=== PATIENT | male | born 1950 | race Caucasian/White ===

== ENCOUNTER 2018-07-04 14:57 | Inpatient (IN) | payer OTHER ==
[2018-07-04 15:17] VITALS: BMI 28.3
--- NOTE | 2018-07-04 17:33 | HP ---
CIWA Score Nausea/Vomitin Muscle Tremors: 4-Moderate,w/Arms Extend Anxiety: 2 Agitation: 2 Paroxysmal Sweats: 2 Orientation: 0-Oriented Tacttile Disturbances: 0-None Auditory Disturbances: 0-None Visual Disturbances: 0-None Headache: 0-None Present CIWA-Ar Total Score: 13 - Admission Criteria OASAS Guidelines: Admission for Medically Managed Detox: Requires at least one of the followin. CIWA greater than 12 2. Seizures within the past 24 hours 3. Delirium tremens within the past 24 hours 4. Hallucinations within the past 24 hours 5. Acute intervention needed for co occurring medical disorder 6. Acute intervention needed for co occurring psychiatric disorder 7. Severe withdrawal that cannot be handled at a lower level of care (continued vomiting, continued diarrhea, abnormal vital signs) requiring intravenous medication and/or fluids 8. Patient presents the following: CIWA greater than 12 Admission Criteria Met: Admission criteria met Admission ROS [facility] Chief Complaint: " alcohol detox" Allergies/Adverse Reactions: Allergies Allergy/AdvReac Type Severity Reaction Status Date / Time No Known Allergies Allergy Verified 07/04/18 16:47 History of Present Illness: 67 yo with h/o BPH- on flomax am and finasteride pm. Says with h/o malunion R foot and also pain of R forearm Drinks 2-3 pints of vodka/day. Lives alone. Does not work. Says he wants to stop to live again. Says he stopped drinking for about 1 year and restarted 1 year ago when he stopped going to AA and hanging out with other alcohol users. Says he had seizure when he stopped drinking about a year ago. Also with h/o hallucinations- never diagnosed with DT's OJ- neg, UDS- neg G[employer]/DUR- checked- pt has no controlled meds prescribed - Ebola screening Have you traveled outside of the country in the last 21 days: No Have you had contact with anyone from an Ebola affected area: No Have you been sick,other than usual withdrawal symptoms: No - Review of Systems Constitutional: No Symptoms Reported EENT: reports: No Symptoms Reported Respiratory: reports: No Symptoms reported Cardiac: reports: No Symptoms Reported GI: reports: No Symptoms Reported : reports: No Symptoms Reported, Other (prostate problem and if he does not take meds- has incontinence) Musculoskeletal: reports: Other (says he has R forearm pain after a recent fall and R foot) Integumentary: reports: No Symptoms Reported Neuro: reports: No Symptoms reported Endocrine: reports: No Symptoms Reported Hematology: reports: No Symptoms Reported Psychiatric: reports: No Sypmtoms Reported Patient History - Patient Medical History Hx Anemia: No Hx Asthma: No Hx Chronic Obstructive Pulmonary Disease (COPD): No Hx Cancer: No Hx Cardiac Disorders: No Hx Congestive Heart Failure: No Hx Hypertension: No Hx Hypercholesterolemia: No Hx Pacemaker: No HX Cerebrovascular Accident: No Hx Seizures: Yes (alcohgol related-last episode was in 03/2017) Hx Dementia: No Hx Diabetes: No Hx Gastrointestinal Disorders: Yes (acid reflux) Hx Liver Disease: No Hx Genitourinary Disorders: No Hx Sexually Transmitted Disorders: No Hx Renal Disease (ESRD): No Hx Thyroid Disease: No Hx Human Immunodeficiency Virus (HIV): No Hx Hepatitis C: No Hx Depression: No Hx Suicide Attempt: No Hx Bipolar Disorder: No Hx Schizophrenia: No - Patient Surgical History Past Surgical History: No Hx Neurologic Surgery: Yes Hx Cataract Extraction: No Hx Cardiac Surgery: No Hx Lung Surgery: No Hx Breast Surgery: No Hx Breast Biopsy: No Hx Abdominal Surgery: No Hx Appendectomy: No Hx Cholecystectomy: No Hx Genitourinary Surgery: No Hx Section: No Hx Orthopedic Surgery: No Other Surgical History: tonsilectomy Anesthesia Reaction: No - PPD History Previous Implant?: Yes Documented Results: Positive w/o proof Date: 05/02/14 - Smoking Cessation Smoking history: Current every day smoker Have you smoked in the past 12 months: Yes Aproximately how many cigarettes per day: 5 Cigars Per Day: 0 Hx Chewing Tobacco Use: No Initiated information on smoking cessation: Yes 'Breaking Loose' booklet given: 07/04/18 - Substances Abused Alcohoil-vodka Route: Oral Frequency: Daily Amount used: 2 pts. Age of first use: 13 Date of Last Use: 07/03/18 Family Disease History - Family Disease History Family Disease History: Diabetes: Father (alc dependence ), Other: Grandparent ( alc dependence ) Admission Physical Exam [facility] - Vital Signs Vital Signs: Vital Signs - 24 hr 07/04/18 07/04/18 15:15 15:29 Temperature 98.8 F 98.8 F Pulse Rate 60 60 Respiratory 18 18 Rate Blood Pressure 100/73 100/73 - Physical General Appearance: Yes: Within Normal Limits Cleared for Admission [facility] - Detox or Rehab [facility] Level of Care: Medically Managed Detox Regimen/Protocol: Librium Claeared for Rehab Admission: No [facility] Breath Alcohol Content Breath Alcohol Content: 0 Urine Drug Screen - Results Drug Screen Negative: Yes
[2018-07-04] MEDS ORDERED: IBUPROFEN 400 MG TABLET (FP) PO PRN (17:51)
[2018-07-04] MEDS ORDERED: MAGNESIUM HYDROX 2400MG/30ML ORAL SUSPENSION 30 ML CUP PO PRN (17:51)
[2018-07-04] MEDS ORDERED: P-EPHED 60MG/TRIPROLIDI 2.5MG TABLET PO PRN (17:51)
[2018-07-04] MEDS ORDERED: guaiFENesin/D-METHORPHAN HB 10 ML UNIT-DOSE CUPS PO PRN (17:51)
[2018-07-04] MEDS ORDERED: MENTHOL/PHENOL 1 EACH UD MM PRN (17:51)
[2018-07-04] MEDS ORDERED: LOPERAMIDE HCL 2 MG CAPSULE PO PRN (17:51)
[2018-07-04] MEDS ORDERED: MAG HYDROX/AL HYDROX/SIMETH 30 ML UNIT-DOSE CUP PO PRN (17:51)
[2018-07-04] MEDS ORDERED: MAGNESIUM CITRATE 300 ML BOTTLE PO PRN (17:51)
[2018-07-04] MEDS ORDERED: ACETAMINOPHEN 325 MG TABLET (FP) PO PRN (17:51)
[2018-07-04] MEDS ORDERED: chlordiazePOXIDE HCL 25 MG CAPSULE PO PRN (17:55)
[2018-07-04] MEDS ORDERED: chlordiazePOXIDE HCL 25 MG CAPSULE PO ONE (18:30)
[2018-07-04] MEDS: FINASTERIDE 5 MG TABLET (FP) PO SCH (18:44)
[2018-07-04] MEDS ORDERED: MELATONIN 5 MG TABLETS PO PRN (22:00)
[2018-07-04] MEDS: chlordiazePOXIDE HCL 25 MG CAPSULE PO SCH (22:25)
[2018-07-04] MEDS: THIAMINE HCL 100 MG TABLET (FP) PO SCH (22:25)
[2018-07-05 03:26] LABS: URINE APPEARANCE SLCLOUDY; URINE BILIRUBIN NEGATIVE (<2.0 mg/dL); URINE COLOR YELLOW; URINE GLUCOSE (UA) NEGATIVE (NEGATIVE); URINE KETONE NEGATIVE (NEGATIVE); URINE LEUK ESTERASE NEGATIVE (NEGATIVE); URINE NITRITE NEGATIVE (NEGATIVE); URINE PROTEIN NEGATIVE (NEGATIVE)
[2018-07-05] MEDS: chlordiazePOXIDE HCL 25 MG CAPSULE PO SCH ×4 (06:20→22:05)
--- NOTE | 2018-07-05 09:55 | PN ---
S CIWA - CIWA Score Nausea/Vomitin-No Nausea/No Vomiting Muscle Tremors: 4-Moderate,w/Arms Extend Anxiety: 4-Mod. Anxious/Guarded Agitation: 4-Moderately Restless Paroxysmal Sweats: 3 Orientation: 0-Oriented Tacttile Disturbances: 0-None Auditory Disturbances: 0-None Visual Disturbances: 0-None Headache: 0-None Present CIWA-Ar Total Score: 15 [facility] Progress Note (SOAP) Subjective: sweats shakes interrupted sleep agitation body aches Objective: 07/05/18 09:54 Vital Signs Temperature 97.9 F 07/05/18 09:37 Pulse Rate 68 07/05/18 09:37 Respiratory Rate 17 07/05/18 09:37 Blood Pressure 104/60 07/05/18 09:37 O2 Sat by Pulse Oximetry (%) Laboratory Tests 07/04/18 21:45 Urine Color Yellow Urine Appearance Slcloudy Urine pH 5.0 D Ur Specific [place] 1.023 Urine Protein Negative Urine Glucose (UA) Negative Urine Ketones Negative Urine Blood Negative Urine Nitrite Negative Urine Bilirubin Negative Urine Urobilinogen 2.0 Ur Leukocyte Esterase Negative rest of labs pending aaox3 ambulating no acute distress Assessment: 07/05/18 09:55 withdrawal sx Plan: continue detox increase fluids labs pending
[2018-07-05] MEDS ORDERED: TAMSULOSIN HCL 0.4 MG CAP PO ONE (10:00)
[2018-07-05 10:03] LABS: ALBUMIN 3.5 g/dl (3.4-5.0); ALK PHOS 93 U/L (45-117); ANION GAP 10 MMOL/L (8-16); BLOOD UREA NITROGEN 25 mg/dL (7-18); CALCIUM 8.6 mg/dL (8.5-10.1); CHLORIDE 110 mmol/L (98-107); CO2 26 mmol/L (21-32); CREATININE 0.9 mg/dL (0.55-1.3); GLUCOSE,RANDOM 114 mg/dL (74-106); POTASSIUM 4.3 mmol/L (3.5-5.1); SGOT/AST 14 U/L (15-37); SGPT/ALT 20 U/L (13-61); SODIUM 146 mmol/L (136-145); TOT PROT 6.1 g/dl (6.4-8.2)
[2018-07-05] MEDS: FINASTERIDE 5 MG TABLET (FP) PO SCH (10:12)
[2018-07-05] MEDS: PRENATAL VITAMINS W/ FOLIC ACID TABLET (FP) PO SCH (10:12)
[2018-07-05] MEDS: NICOTINE 7 MG/24 HOURS TOPICAL PATCH TD SCH (10:13)
[2018-07-05 10:50] LABS: HEMATOCRIT 38.9 % (35.4-49); HEMOGLOBIN 13.1 GM/dL (11.7-16.9); MCHC 33.7 g/dl (32.0-35.9); MEAN CELL VOLUME 91.9 fl (80-96); MEAN PLT VOLUME 8.7 fl (7.5-11.1); PLATELET COUNT 239 K/MM3 (134-434); RDW 14.9 % (11.9-15.9); WHITE BLOOD COUNT 7.7 K/mm3 (4.0-10.0)
[2018-07-05 10:56] LABS: RBC 4.23 M/mm3 (4.00-5.60)
--- NOTE | 2018-07-05 16:15 | EKG ---
Test Reason : Blood Pressure : / mmHG Vent. Rate : 057 BPM Atrial Rate : 057 BPM P-R Int : 136 ms QRS Dur : 090 ms QT Int : 384 ms P-R-T Axes : 061 075 063 degrees QTc Int : 373 ms SINUS BRADYCARDIA OTHERWISE NORMAL ECG NO PREVIOUS ECGS AVAILABLE Confirmed by MD Dar, Dionisio ([id number]) on 07/05/2018 4:14:40 PM Referred By: Confirmed By:Dionisio Dodge MD
[2018-07-05] MEDS: THIAMINE HCL 100 MG TABLET (FP) PO SCH (22:04)
[2018-07-06] MEDS: chlordiazePOXIDE HCL 25 MG CAPSULE PO SCH ×3 (05:42→17:41)
[2018-07-06] MEDS: FINASTERIDE 5 MG TABLET (FP) PO SCH (10:43)
[2018-07-06] MEDS: PRENATAL VITAMINS W/ FOLIC ACID TABLET (FP) PO SCH (10:43)
[2018-07-06] MEDS: NICOTINE 7 MG/24 HOURS TOPICAL PATCH TD SCH (10:43)
--- NOTE | 2018-07-06 11:20 | PN ---
[facility] CIWA - CIWA Score Nausea/Vomitin-No Nausea/No Vomiting Muscle Tremors: 3 Anxiety: 3 Agitation: 3 Paroxysmal Sweats: 3 Orientation: 0-Oriented Tacttile Disturbances: 0-None Auditory Disturbances: 0-None Visual Disturbances: 0-None Headache: 0-None Present CIWA-Ar Total Score: 12 S Progress Note (SOAP) Subjective: tired anxiety sweats i need my prostate medication Objective: 07/06/18 11:18 Vital Signs Temperature 98.1 F 07/06/18 10:03 Pulse Rate 67 07/06/18 10:03 Respiratory Rate 16 07/06/18 10:03 Blood Pressure 117/67 07/06/18 10:03 O2 Sat by Pulse Oximetry (%) Laboratory Tests 07/04/18 07/05/18 07/05/18 21:45 07:00 07:00 WBC 7.7 RBC 4.23 Hgb 13.1 Hct 38.9 D MCV 91.9 MCH 31.0 D MCHC 33.7 RDW 14.9 Plt Count 239 D MPV 8.7 Sodium 146 H Potassium 4.3 Chloride 110 H Carbon Dioxide 26 Anion Gap 10 BUN 25 H Creatinine 0.9 Creat Clearance w eGFR > 60 Random Glucose 114 H Calcium 8.6 Total Bilirubin 2.0 H AST 14 L ALT 20 Alkaline Phosphatase 93 Total Protein 6.1 L Albumin 3.5 Urine Color Yellow Urine Appearance Slcloudy Urine pH 5.0 D Ur Specific [place] 1.023 Urine Protein Negative Urine Glucose (UA) Negative Urine Ketones Negative Urine Blood Negative Urine Nitrite Negative Urine Bilirubin Negative Urine Urobilinogen 2.0 Ur Leukocyte Esterase Negative RPR Titer 07/05/18 07:00 WBC RBC Hgb Hct MCV MCH MCHC RDW Plt Count MPV Sodium Potassium Chloride Carbon Dioxide Anion Gap BUN Creatinine Creat Clearance w eGFR Random Glucose Calcium Total Bilirubin AST ALT Alkaline Phosphatase Total Protein Albumin Urine Color Urine Appearance Urine pH Ur Specific [place] Urine Protein Urine Glucose (UA) Urine Ketones Urine Blood Urine Nitrite Urine Bilirubin Urine Urobilinogen Ur Leukocyte Esterase RPR Titer Nonreactive aaox3 ambulating no acute distress Assessment: 07/06/18 11:19 withdrawal sx Plan: continue detox increase fluids flomax and finistraide ordered as per pt request
[2018-07-06] MEDS ORDERED: FINASTERIDE 5 MG TABLET (FP) PO SCH (11:30)
[2018-07-06] MEDS: TAMSULOSIN HCL 0.4 MG CAP PO SCH (12:44)
[2018-07-06] MEDS: THIAMINE HCL 100 MG TABLET (FP) PO SCH (21:57)
[2018-07-06] MEDS: chlordiazePOXIDE 5 MG CAPSULE PO SCH (21:59)
[2018-07-07] MEDS: chlordiazePOXIDE 5 MG CAPSULE PO SCH ×3 (05:52→17:16)
[2018-07-07] MEDS: TAMSULOSIN HCL 0.4 MG CAP PO SCH (09:30)
--- NOTE | 2018-07-07 11:07 | PN ---
[facility] Progress Note (SOAP) Subjective: feeling good little sweats Objective: 07/07/18 11:06 Vital Signs Temperature 97.8 F 07/07/18 09:33 Pulse Rate 60 07/07/18 09:33 Respiratory Rate 16 07/07/18 09:33 Blood Pressure 117/54 L 07/07/18 09:33 O2 Sat by Pulse Oximetry (%) aaox3 ambulating no acute distress Assessment: 07/07/18 11:07 withdrawal sx Plan: continue detox increase fluids
[2018-07-07] MEDS: PRENATAL VITAMINS W/ FOLIC ACID TABLET (FP) PO SCH (11:20)
[2018-07-07] MEDS: NICOTINE 7 MG/24 HOURS TOPICAL PATCH TD SCH (11:25)
[2018-07-07] MEDS: FINASTERIDE 5 MG TABLET (FP) PO SCH (11:27)
[2018-07-07] MEDS ORDERED: FINASTERIDE 5 MG TABLET (FP) PO SCH (20:00)
[2018-07-07] MEDS: THIAMINE HCL 100 MG TABLET (FP) PO SCH (22:51)
[2018-07-07] MEDS: chlordiazePOXIDE HCL 10 MG CAPSULE PO SCH (22:51)
[2018-07-08] MEDS: chlordiazePOXIDE HCL 10 MG CAPSULE PO SCH (05:54)
[2018-07-08 09:37] VITALS: BP 119/53; PULSE 68; TEMP 97.5
--- NOTE | 2018-07-08 09:51 | DS ---
[facility] Detox Discharge Summary Admission Date: 07/04/18 Discharge Date: 07/08/18 - History Present History: Alcohol Dependence - Physical Exam Results Vital Signs: Vital Signs Temperature 97.5 F L 07/08/18 09:36 Pulse Rate 68 07/08/18 09:36 Respiratory Rate 20 07/08/18 09:36 Blood Pressure 119/53 L 07/08/18 09:36 O2 Sat by Pulse Oximetry (%) - Treatment Hospital Course: Detox Protocol Followed, Detoxed Safely, Responded well, Discharged Condition Good, Rehab Referral Accepted - Medication Discharge Medications: Ambulatory Orders Tamsulosin HCl [Flomax -] 0.4 mg PO DAILY #30 cap.er.[id number] 04/22/15 Finasteride [Proscar -] 5 mg PO DAILY 07/04/18 - Diagnosis (1) Alcohol dependence with withdrawal delirium Current Visit: Yes Status: Chronic (2) BPH (benign prostatic hyperplasia) Current Visit: Yes Status: Chronic Qualifiers: Lower urinary tract symptom presence: symptoms present Qualified Code(s): N40.1 - Benign prostatic hyperplasia with lower urinary tract symptoms (3) Nicotine abuse Current Visit: Yes Status: Chronic (4) Seizure disorder Current Visit: No Status: Chronic - AMA Did Patient Leave Against Medical Advice: No (efrain ferrer out patient)
[2018-07-08] MEDS: PRENATAL VITAMINS W/ FOLIC ACID TABLET (FP) PO SCH (10:05)
[2018-07-08] MEDS: TAMSULOSIN HCL 0.4 MG CAP PO SCH (10:06)
== END 2018-07-08 11:55 | disposition home or self-care (01) | DRG 897 ==
LOC: YASAS 14:57 → Y6N 18:05
PROC: HZ2ZZZZ Detoxification Services for Substance Abuse Treatment (ICD-10-PCS; principal; 2018-07-04)
DX: F10.231 Alcohol dependence with withdrawal delirium (principal); B40.0 Acute pulmonary blastomycosis; Z72.0 Tobacco use; G40.909 Epilepsy, unspecified, not intractable, without status epilepticus; K21.9 Gastro-esophageal reflux disease without esophagitis; Z86.69 Personal history of other diseases of the nervous system and sense organs
CPT/HCPCS: 36415; 71046-TC-FY; 80053; 81003; 85027; 86593; 93005; 93010

== ENCOUNTER 2019-01-07 11:25 | Inpatient (IN) | payer OTHER ==
--- NOTE | 2019-01-07 12:32 | HP ---
CIWA Score Nausea/Vomitin Muscle Tremors: 4-Moderate,w/Arms Extend Anxiety: 4-Mod. Anxious/Guarded Agitation: 1-Slight > Activity Paroxysmal Sweats: 1-Minimal Palms Moist Orientation: 1-Uncertain about Date Tacttile Disturbances: 1-Very Mild Itch/Numbness Auditory Disturbances: 2-Mild Harshness/Frighten Visual Disturbances: 1-Very Mild Sensitivity Headache: 2-Mild CIWA-Ar Total Score: 19 - Admission Criteria OASAS Guidelines: Admission for Medically Managed Detox: Requires at least one of the followin. CIWA greater than 12 2. Seizures within the past 24 hours 3. Delirium tremens within the past 24 hours 4. Hallucinations within the past 24 hours 5. Acute intervention needed for co occurring medical disorder 6. Acute intervention needed for co occurring psychiatric disorder 7. Severe withdrawal that cannot be handled at a lower level of care (continued vomiting, continued diarrhea, abnormal vital signs) requiring intravenous medication and/or fluids 8. Patient presents the following: CIWA greater than 12 Admission Criteria Met: Admission criteria met Admission ROS [facility] Chief Complaint: My body screams for alcohol, I buy whatever is in the street, I'm in a cycle and I need to get out of it - when I drink I only drink I no eat or sleep - I cannot resist the alcohol Allergies/Adverse Reactions: Allergies Allergy/AdvReac Type Severity Reaction Status Date / Time No Known Allergies Allergy Verified 07/04/18 16:47 History of Present Illness: 68 yo gentleman here for detox from alcohol, this is one of several admissions for treatment. Longest time sober was 10 years - states he thought he was ok and stopped going to and relapsed. Starts drinking first thing with his morning coffee. Tried acamprosate but it did not work for him and is interested in Health: [place]. History of seizures and black outs. States he has no idea why cocaine and marijuana are in his urine tox - 'maybe I did something while I was drunk'. Exam Limitations: No Limitations - Ebola screening Have you traveled outside of the country in the last 21 days: No (N) Have you had contact with anyone from an Ebola affected area: No Do you have a fever: No - Review of Systems Constitutional: Chills, Loss of Appetite, Malaise, Changes in sleep, Weakness EENT: reports: Blurred Vision Respiratory: reports: No Symptoms reported Cardiac: reports: No Symptoms Reported GI: reports: Nausea, Poor Appetite, Indigestion, Abdominal cramping : reports: Frequency Musculoskeletal: reports: Back Pain, Joint Pain (knees - arthritis) Integumentary: reports: Dryness Neuro: reports: Headache, Tremors Endocrine: reports: No Symptoms Reported Hematology: reports: No Symptoms Reported Psychiatric: reports: Judgement Intact, Mood/Affect Appropiate, Anxious Other Systems: Reviewed and Negative Patient History - Patient Medical History Hx Anemia: No Hx Asthma: No Hx Chronic Obstructive Pulmonary Disease (COPD): No Hx Cancer: No Hx Cardiac Disorders: No Hx Congestive Heart Failure: No Hx Hypertension: No Hx Hypercholesterolemia: No Hx Pacemaker: No HX Cerebrovascular Accident: No Hx Seizures: Yes (alcohol related-last episode was in 06/2018) Hx Dementia: No Hx Diabetes: No Hx Gastrointestinal Disorders: Yes (acid reflux) Hx Liver Disease: Yes Hx Genitourinary Disorders: Yes (BPH) Hx Sexually Transmitted Disorders: No Hx Renal Disease (ESRD): No Hx Thyroid Disease: No Hx Human Immunodeficiency Virus (HIV): No Hx Hepatitis C: No Hx Depression: No Hx Suicide Attempt: No Hx Bipolar Disorder: No Hx Schizophrenia: No Other Medical History: knee OA - Patient Surgical History Past Surgical History: No Hx Neurologic Surgery: Yes Hx Cataract Extraction: No Hx Cardiac Surgery: No Hx Lung Surgery: No Hx Breast Surgery: No Hx Breast Biopsy: No Hx Abdominal Surgery: No Hx Appendectomy: No Hx Cholecystectomy: No Hx Genitourinary Surgery: No Hx Section: No Hx Orthopedic Surgery: No Other Surgical History: tonsilectomy Anesthesia Reaction: No - PPD History Previous Implant?: Yes Documented Results: Positive w/o proof (2014 -PPD+ - no meds) Implanted On Prior R Admission?: No Date: 07/05/18 (CXR) PPD to be Administered?: No - Reproductive History Patient is a Female of Child Bearing Age (11 -55 yrs old): No - Smoking Cessation Smoking history: Current every day smoker Have you smoked in the past 12 months: Yes Aproximately how many cigarettes per day: 10 Cigars Per Day: 0 Hx Chewing Tobacco Use: No Initiated information on smoking cessation: Yes 'Breaking Loose' booklet given: 01/07/19 (give on floor) - Substance & Tx. History Hx Alcohol Use: Yes Hx Substance Use: Yes Substance Use Type: Alcohol, Cocaine, Marijuana Hx Substance Use Treatment: Yes (detox, rehab) - Substances abused Alcohol Substance route: Oral Frequency: Daily Amount used: 1 liter vodka Age of first use: 13 Date of last use: 01/06/19 None Substance route: Oral Frequency: Daily Amount used: 1 liter vodka Age of first use: 13 Date of last use: 01/06/19 Family Disease History - Family Disease History Family Disease History: Diabetes: Father (, alc dependence ), Other: Grandparent (alc dependence ), Father, Mother (,abused pills, liver disease ), Brother (one - healthy), Sister (two - (one is transgender)) Admission Physical Exam [facility] - Vital Signs Vital Signs: Vital Signs - 24 hr 01/07/19 11:51 Temperature 96.9 F L Pulse Rate 58 L Respiratory 19 Rate Blood Pressure 101/58 L - Physical General Appearance: Yes: Nourished, Appropriately Dressed, Moderate Distress, Tremorous, Anxious HEENTM: Yes: EOMI, Hearing grossly Normal, Normal ENT Inspection, Normocephalic , Normal Voice, Hearing Decreased Respiratory: Yes: Normal Breath Sounds, No Respiratory Distress Neck: Yes: No masses,lesions,Nodules, Supple Breast: Yes: Breast Exam Deferred Cardiology: Yes: Regular Rhythm, Regular Rate Abdominal: Yes: Soft Genitourinary: Yes: Frequency, Nocturia Back: Yes: Decreased Range of Motion Musculoskeletal: Yes: full range of Motion, Gait Steady, Joint Stiffness (knees) Extremities: Yes: Normal Inspection, Normal Range of Motion Neurological: Yes: Alert, Normal Mood/Affect, Normal Response Integumentary: Yes: Normal Color, Dry, Warm Lymphatic: Yes: Within Normal Limits - Diagnostic (1) BPH (benign prostatic hyperplasia) Current Visit: Yes Status: Chronic Qualifiers: Lower urinary tract symptom presence: symptoms present (2) Alcohol dependence with uncomplicated withdrawal Current Visit: Yes Status: Chronic (3) Nicotine dependence Current Visit: Yes Status: Chronic Qualifiers: Nicotine product type: cigarettes Substance use status: uncomplicated Qualified Code(s): F17.210 - Nicotine dependence, cigarettes, uncomplicated (4) History of seizure Current Visit: Yes Status: Chronic (5) Osteoarthritis of knees, bilateral Current Visit: Yes Status: Chronic Qualifiers: Osteoarthritis type: primary Qualified Code(s): M17.0 - Bilateral primary osteoarthritis of knee Cleared for Admission [facility] - Detox or Rehab [facility] Level of Care: Medically Managed Detox Regimen/Protocol: Librium Breathalyzer - Breathalyzer Breathalyzer: 0 Urine Drug Screen - Test Device Lot number: [id number] Expiration date: 09/22/20 - Control Is test valid?: Yes - Results Drug screen NEGATIVE: No Urine drug screen results: THC-Marijuana, ALVA-Cocaine, BZO-Benzodiazepines Inpatient Rehab Admission - Rehab Decision to Admit Inpatient rehab admission?: No
[2019-01-07] MEDS ORDERED: MELATONIN 5 MG TABLETS PO PRN (12:38)
[2019-01-07] MEDS ORDERED: MAGNESIUM CITRATE 300 ML BOTTLE PO PRN (12:38)
[2019-01-07] MEDS ORDERED: BISMUTH SUBSALICYLATE 524 MG/30 ML UD PO PRN (12:38)
[2019-01-07] MEDS ORDERED: MENTHOL/PHENOL 1 EACH UD MM PRN (12:38)
[2019-01-07] MEDS ORDERED: MAG HYDROX/AL HYDROX/SIMETH 30 ML UNIT-DOSE CUP PO PRN (12:38)
[2019-01-07] MEDS ORDERED: MAGNESIUM HYDROX 2400MG/30ML ORAL SUSPENSION 30 ML CUP PO PRN (12:38)
[2019-01-07] MEDS ORDERED: chlordiazePOXIDE HCL 25 MG CAPSULE PO ONE (13:15)
[2019-01-07] MEDS: NICOTINE 14 MG/24 HOURS TOPICAL PATCH TD SCH (13:20)
[2019-01-07] MEDS: METHOCARBAMOL 500 MG TABLET PO PRN ×2 (13:22→19:47)
[2019-01-07] MEDS: chlordiazePOXIDE HCL 25 MG CAPSULE PO SCH ×2 (17:47→23:32)
[2019-01-07] MEDS: IBUPROFEN 400 MG TABLET (FP) PO PRN (21:59)
[2019-01-07] MEDS: THIAMINE HCL 100 MG TABLET (FP) PO SCH (21:59)
[2019-01-07] MEDS: TAMSULOSIN HCL 0.4 MG CAP PO SCH (22:25)
[2019-01-07] MEDS: ACETAMINOPHEN 325 MG TABLET (FP) PO PRN (23:32)
[2019-01-08] MEDS: METHOCARBAMOL 500 MG TABLET PO PRN ×4 (01:18→22:01)
[2019-01-08] MEDS: chlordiazePOXIDE HCL 25 MG CAPSULE PO PRN ×2 (03:10→12:47)
[2019-01-08] MEDS: hydrOXYzine PAMOATE 25 MG CAPSULE (FP) PO PRN ×3 (03:10→22:01)
[2019-01-08] MEDS: chlordiazePOXIDE HCL 25 MG CAPSULE PO SCH ×4 (06:18→22:01)
[2019-01-08] MEDS: IBUPROFEN 400 MG TABLET (FP) PO PRN ×2 (09:07→18:43)
[2019-01-08] MEDS ORDERED: PRENATAL VITAMINS W/ FOLIC ACID TABLET (FP) PO SCH (10:00)
[2019-01-08] MEDS: NICOTINE 14 MG/24 HOURS TOPICAL PATCH TD SCH (10:30)
[2019-01-08] MEDS: ACETAMINOPHEN 325 MG TABLET (FP) PO PRN (12:48)
--- NOTE | 2019-01-08 13:14 | PN ---
[facility] CIWA - CIWA Score Nausea/Vomitin-Mild Nausea/No Vomiting Muscle Tremors: 4-Moderate,w/Arms Extend Anxiety: 4-Mod. Anxious/Guarded Agitation: 4-Moderately Restless Paroxysmal Sweats: 3 Orientation: 0-Oriented Tacttile Disturbances: 0-None Auditory Disturbances: 0-None Visual Disturbances: 0-None Headache: 0-None Present CIWA-Ar Total Score: 16 [facility] Progress Note (SOAP) Subjective: Anxious, back pain Objective: 01/08/19 13:10 Last Vital Signs Temp Pulse Resp BP Pulse Ox 97.9 F 55 L 16 123/62 01/08/19 09:47 01/08/19 09:47 01/08/19 09:47 01/08/19 09:47 Admission lab results not available (will reorder admission labs in AM: CBC, CMP , RPR; will order UA) Assessment: 01/08/19 13:14 Withdrawal symptoms Plan: Continue detox Encouraged PO water hydration Admission labs reordered in AM
[2019-01-08 18:03] VITALS: PULSE 60
[2019-01-08] MEDS ORDERED: ACETAMINOPHEN 325 MG TABLET (FP) PO PRN (18:38)
--- NOTE | 2019-01-08 18:48 | PN ---
S Progress Note (SOAP) Subjective: (R) hip muscle pain x 24 hrs. States pain is new, sharp and a "10". Objective: Ambulating in halls and moaning. Gait is steady. (R) leg FROM. Muscles at hip and calf soft, w/o increased erythema, warmth, or tenderness upon palpation. Pedal pulses (+). Negative Andi's. No edema. Vital Signs 01/08/19 01/08/19 14:17 18:02 Temperature 97.9 F 98.1 F Pulse Rate 59 L 60 Respiratory 18 18 Rate Blood Pressure 127/66 136/78 Assessment: Alcohol withdrawal. Hop Muscle pain. Continued ciaran knee pain. Plan: Continue detox. Increase ibuprofen and acetaminophen order. Encourage alternation warm and cool compresses (R) prn.
[2019-01-08 21:55] VITALS: BP 150/50; TEMP 98.8
[2019-01-08] MEDS: THIAMINE HCL 100 MG TABLET (FP) PO SCH (22:01)
[2019-01-08] MEDS: TAMSULOSIN HCL 0.4 MG CAP PO SCH (22:01)
[2019-01-09] MEDS ORDERED: KETOROLAC TROMETHAMINE 30 MG/1 ML VIAL IM PRN (00:42)
[2019-01-09] MEDS: IBUPROFEN 400 MG TABLET (FP) PO PRN (03:39)
--- NOTE | 2019-01-09 04:45 | PN ---
[facility] Progress Note Note: 'S NOTE INFORMED AT ABOUT 4:30AM THAT THE PT. WANTS TO SIGN OUT AMA FOR PERSONAL REASONS INSPITE OF ADVICE NOT TO DO SO AT THIS TIME. SO, THE PT. SIGNED OUT AMA AND ABOUT TO LEAVE THE FACILITY SOON. RECOMMENDED: TO F/U WITH PMD AND OUT PT. PROGRAMS PROVIDER: DELIA LEVI MD
[2019-01-09] MEDS ORDERED: chlordiazePOXIDE HCL 10 MG CAPSULE PO PRN (17:00)
[2019-01-09] MEDS ORDERED: chlordiazePOXIDE HCL 10 MG CAPSULE PO SCH (17:00)
[2019-01-10] MEDS ORDERED: chlordiazePOXIDE HCL 10 MG CAPSULE PO SCH (17:00)
== END 2019-01-09 04:42 | disposition home or self-care (01) | DRG 897 ==
LOC: YASAS 11:25 → Y6N 12:35
PROVIDERS: ADMIT Surgery; ATTEND Surgery
PROC: HZ2ZZZZ Detoxification Services for Substance Abuse Treatment (ICD-10-PCS; principal; 2019-01-07)
DX: F10.230 Alcohol dependence with withdrawal, uncomplicated (principal); F17.213 Nicotine dependence, cigarettes, with withdrawal; K21.9 Gastro-esophageal reflux disease without esophagitis; N40.0 Benign prostatic hyperplasia without lower urinary tract symptoms; M17.0 Bilateral primary osteoarthritis of knee; Z86.19 Personal history of other infectious and parasitic diseases

== ENCOUNTER 2019-08-28 13:09 | Inpatient (IN) | payer OTHER ==
[2019-08-28 14:38] VITALS: BMI 31.3
--- NOTE | 2019-08-28 17:12 | HP ---
"CIWA Score Nausea/Vomitin Muscle Tremors: 7-Severe,w/o Arm Extended Anxiety: 3 Agitation: 3 Paroxysmal Sweats: 3 (Increased facial moisture) Orientation: 0-Oriented Tacttile Disturbances: 0-None Auditory Disturbances: 0-None Visual Disturbances: 0-None Headache: 0-None Present CIWA-Ar Total Score: 19 - Admission Criteria OASAS Guidelines: Admission for Medically Managed Detox: Requires at least one of the followin. CIWA greater than 12 2. Seizures within the past 24 hours 3. Delirium tremens within the past 24 hours 4. Hallucinations within the past 24 hours 5. Acute intervention needed for co occurring medical disorder 6. Acute intervention needed for co occurring psychiatric disorder 7. Severe withdrawal that cannot be handled at a lower level of care (continued vomiting, continued diarrhea, abnormal vital signs) requiring intravenous medication and/or fluids 8. Patient presents the following: CIWA greater than 12 Admission Criteria Met: Admission criteria met Admitting History and Physical - Smoking History Smoking history: Current every day smoker Have you smoked in the past 12 months: Yes Aproximately how many cigarettes per day: 10 - Alcohol/Substance Use Hx Alcohol Use: Yes Admission ROS S - HPI Chief Complaint: Here for alcohol detox. I want to go to rehab this time. Allergies/Adverse Reactions: Allergies Allergy/AdvReac Type Severity Reaction Status Date / Time No Known Allergies Allergy Verified 08/28/19 14:30 History of Present Illness: 69 yo presents w/ alcohol withdrawal seeking detox. Also presents w/ cocaine use disorder. Comes [facility] from [facility] ED w/ Dx alcohol intoxication and auditory hallucinations. Was given Tylenol, Valium, folic acid, IV-nacal; Thiamine in [facility] ed. Blood work done, but no results sent w/ patients discharge papers. Last here in 01/09/2019. States relapsed 3 months ago. Hx seizures r/t alcohol withdrawal. Denies being on seizure medications. Hx Intubation r/t DT's. Alcohol use since age 13: Currently drinks 1 liter vodka per day. Last drank yesterday a.m. Cocaine use since age [age]: Currently 1-2x Q3 months. Nicotine use since age 16: Smokes 1 PPD q2 weeks PMHx: BPH; MHx: Depression. Insomnia. Hallucinations when stops drinking. Denies thoughts of harming self or others. Last saw MH Provider in out-patient program. SHx: Lives alone. Retired. Denies legal issues. Search Terms: Evangelista Feliciano, 1950 Search Date: 08/28/2019 05:09:00 PM The Drug Utilization Report below displays all of the controlled substance prescriptions, if any, that your patient has filled in the last twelve months. The information displayed on this report is compiled from pharmacy submissions to the Department, and accurately reflects the information as submitted by the pharmacies. This report was requested by: Meera Sandy | Reference #: [id number] There are no results for the search terms that you entered. Exam Limitations: No Limitations - Ebola screening Have you traveled outside of the country in the last 21 days: No Have you had contact with anyone from an Ebola affected area: No Have you been sick,other than usual withdrawal symptoms: No Do you have a fever: No - Review of Systems Constitutional: Chills, Diaphoresis, Changes in sleep (Difficulty dfalling asleep - takes trazodone) EENT: reports: Blurred Vision Respiratory: reports: SOB with Exertion Cardiac: reports: No Symptoms Reported GI: reports: Diarrhea (yellowish liquid BM x 4 times), Nausea, Vomiting : reports: Other (Difficuty starting flow and flow is weak) Musculoskeletal: reports: No Symptoms Reported Integumentary: reports: Erythema (Hands always reddish) Neuro: reports: Tremors Endocrine: reports: No Symptoms Reported Hematology: reports: No Symptoms Reported Psychiatric: reports: Judgement Intact, Orientated x3, Anxious, Depressed ( Denies thoughts of harming self or others) Patient History - Patient Medical History Hx Anemia: No Hx Asthma: No Hx Chronic Obstructive Pulmonary Disease (COPD): No Hx Cancer: No Hx Cardiac Disorders: No Hx Congestive Heart Failure: No Hx Hypertension: No Hx Hypercholesterolemia: No Hx Pacemaker: No HX Cerebrovascular Accident: No Hx Seizures: Yes (alcohol related-last episode was in 06/2018) Hx Dementia: No Hx Diabetes: No Hx Gastrointestinal Disorders: Yes (acid reflux) Hx Liver Disease: Yes Hx Genitourinary Disorders: Yes (BPH) Hx Sexually Transmitted Disorders: No Hx Renal Disease (ESRD): No Hx Thyroid Disease: No Hx Human Immunodeficiency Virus (HIV): No Hx Hepatitis C: No Hx Depression: No Hx Suicide Attempt: No Hx Bipolar Disorder: No Hx Schizophrenia: No - Patient Surgical History Past Surgical History: No Hx Neurologic Surgery: Yes Hx Cataract Extraction: No Hx Cardiac Surgery: No Hx Lung Surgery: No Hx Breast Surgery: No Hx Breast Biopsy: No Hx Abdominal Surgery: No Hx Appendectomy: No Hx Cholecystectomy: No Hx Genitourinary Surgery: No Hx Section: No Hx Orthopedic Surgery: No Other Surgical History: tonsilectomy Anesthesia Reaction: No - PPD History Previous Implant?: Yes Documented Results: Positive w/proof Implanted On Prior [facility] Admission?: Yes Date: 07/05/18 PPD to be Administered?: No - Smoking Cessation Smoking history: Current every day smoker Have you smoked in the past 12 months: Yes Aproximately how many cigarettes per day: 2 Cigars Per Day: 0 Hx Chewing Tobacco Use: No Initiated information on smoking cessation: Yes 'Breaking Loose' booklet given: 08/28/19 - Substance & Tx. History Hx Alcohol Use: Yes Hx Substance Use: Yes Substance Use Type: Alcohol, Cocaine Hx Substance Use Treatment: Yes (DETOX, REHAB) - Substances abused Alcohol Substance route: Oral Frequency: Daily Amount used: 2 liter vodka Age of first use: 13 Date of last use: 08/28/19 None Substance route: Oral Frequency: Daily Amount used: 1 liter vodka Age of first use: 13 Date of last use: 01/06/19 Crack Substance route: Smoking Frequency: 1-2 times per week Amount used: $50 Age of first use: 15 Date of last use: 08/27/19 Admission Physical Exam BHS - Vital Signs Vital Signs: Vital Signs - 24 hr 08/28/19 14:23 Temperature 97.5 F L Pulse Rate 71 Respiratory 20 Rate Blood Pressure 106/63 - Physical General Appearance: Yes: Nourished, Moderate Distress, Obese, Tremorous, Sweating (Increased facial moisture), Anxious HEENTM: Yes: EOMI, Hearing grossly Normal, Normocephalic, Normal Voice, CL, Pharynx Normal, Scleral Ictenus R (Faint yellowish color), Scleral Ictenus L ( Faint yellowish color), Nasal Congestion Respiratory: Yes: Lungs Clear (Pulse Ox = 98 %), Normal Breath Sounds, No Respiratory Distress Neck: Yes: No masses,lesions,Nodules, Supple Breast: Yes: Breast Exam Deferred Cardiology: Yes: Regular Rhythm, Regular Rate (HR: 66), S1, S2 Abdominal: Yes: Non Tender, Soft, Increased Bowel Sounds, Protuberent ( Increased abdominal adiposity) Genitourinary: Yes: Dysuria Back: Yes: Normal Inspection Musculoskeletal: Yes: full range of Motion, Gait Steady Extremities: Yes: Normal Capillary Refill, Tremors (Gross tremors at rest) Neurological: Yes: global marketing specialist II-XII NML intact, Fully Oriented, Alert, Motor Strength 5/5, Normal Response Integumentary: Yes: Normal Color, Dry (Dry, falky skin, except for facial area.) , Warm, Moist (Increased facial moisture.) Lymphatic: Yes: Within Normal Limits - Diagnostic (1) Scleral icterus Current Visit: Yes Status: Acute (2) Alcohol dependence with uncomplicated withdrawal Current Visit: Yes Status: Chronic (3) BPH (benign prostatic hyperplasia) Current Visit: Yes Status: Chronic Qualifiers: Lower urinary tract symptom presence: symptoms present (4) History of seizure Current Visit: No Status: Chronic Comment: r/t withdrawal (5) Nicotine dependence Current Visit: Yes Status: Chronic Qualifiers: Nicotine product type: cigarettes Substance use status: uncomplicated Qualified Code(s): F17.210 - Nicotine dependence, cigarettes, uncomplicated (6) Cocaine abuse Current Visit: Yes Status: Chronic Cleared for Admission S - Detox or Rehab [facility] Level of Care: Medically Managed Detox Regimen/Protocol: Librium Claeared for Rehab Admission: No Breathalyzer - Breathalyzer Breathalyzer: 0 Urine Drug Screen - Test Device Lot number: [id number] Expiration date: 05/22/21 - Control Is test valid?: Yes - Results Drug screen NEGATIVE: No Urine drug screen results: ALVA-Cocaine, BZO-Benzodiazepines Inpatient Rehab Admission - Rehab Decision to Admit Inpatient rehab admission?: No"
[2019-08-28] MEDS ORDERED: chlordiazePOXIDE HCL 25 MG CAPSULE PO PRN (17:24)
[2019-08-28] MEDS ORDERED: ACETAMINOPHEN 325 MG TABLET (FP) PO PRN ×2 (17:24)
[2019-08-28] MEDS ORDERED: MAGNESIUM CITRATE 300 ML BOTTLE PO PRN (17:24)
[2019-08-28] MEDS ORDERED: MAGNESIUM HYDROX 2400MG/30ML ORAL SUSPENSION 30 ML CUP PO PRN (17:24)
[2019-08-28] MEDS ORDERED: MAG HYDROX/AL HYDROX/SIMETH 30 ML UNIT-DOSE CUP PO PRN (17:24)
[2019-08-28] MEDS ORDERED: chlordiazePOXIDE HCL 25 MG CAPSULE PO ONE (17:24)
[2019-08-28] MEDS ORDERED: MENTHOL/PHENOL 1 EACH UD MM PRN (17:24)
[2019-08-28] MEDS ORDERED: BISMUTH SUBSALICYLATE 524 MG/30 ML UD PO PRN (17:24)
[2019-08-28] MEDS ORDERED: IBUPROFEN 400 MG TABLET (FP) PO PRN (17:24)
[2019-08-28] MEDS ORDERED: MELATONIN 5 MG TABLETS PO PRN (17:24)
[2019-08-28] MEDS: chlordiazePOXIDE HCL 25 MG CAPSULE PO SCH (23:05)
[2019-08-28] MEDS: THIAMINE HCL 100 MG TABLET (FP) PO SCH (23:05)
[2019-08-28] MEDS: FINASTERIDE 5 MG TABLET (FP) PO SCH (23:47)
[2019-08-29] MEDS: chlordiazePOXIDE HCL 25 MG CAPSULE PO SCH ×5 (06:12→22:03)
--- NOTE | 2019-08-29 08:57 | PN ---
S CIWA - CIWA Score Nausea/Vomitin-Mild Nausea/No Vomiting Muscle Tremors: 3 Anxiety: 2 Agitation: 2 Paroxysmal Sweats: 2 Orientation: 0-Oriented Tacttile Disturbances: 0-None Auditory Disturbances: 0-None Visual Disturbances: 0-None Headache: 1-Very Mild CIWA-Ar Total Score: 11 S Progress Note (SOAP) Subjective: states feeling better with detox protocol O: Vital Signs - 24 hr 08/28/19 08/28/19 08/28/19 14:23 19:11 21:12 Temperature 97.5 F L 97.1 F L 97.5 F L Pulse Rate 71 81 75 Respiratory 20 18 18 Rate Blood Pressure 106/63 112/61 111/60 08/29/19 08/29/19 08/29/19 00:30 03:30 06:19 Temperature 97.5 F L Pulse Rate 57 L Respiratory 18 18 16 Rate Blood Pressure 97/60 labs pending a/p: AUD- admitted yesterday, feeling better today to d/w counselor re prison treatment plans
[2019-08-29] MEDS: PRENATAL VITAMINS W/ FOLIC ACID TABLET (FP) PO SCH (09:26)
[2019-08-29] MEDS: TAMSULOSIN HCL 0.4 MG CAP PO SCH (09:26)
--- NOTE | 2019-08-29 09:26 | EKG ---
Test Reason : Blood Pressure : / mmHG Vent. Rate : 065 BPM Atrial Rate : 065 BPM P-R Int : 156 ms QRS Dur : 096 ms QT Int : 382 ms P-R-T Axes : 052 038 039 degrees QTc Int : 397 ms NORMAL SINUS RHYTHM NORMAL ECG WHEN COMPARED WITH ECG OF 04-JUL-2018 19:23, NO SIGNIFICANT CHANGE WAS FOUND Confirmed by Rolf Anton MD ([id number]) on 08/29/2019 9:26:20 AM Referred By: Confirmed By:Rolf Anton MD
[2019-08-29] MEDS: NICOTINE 7 MG/24 HOURS TOPICAL PATCH TD SCH (10:29)
--- NOTE | 2019-08-29 11:13 | CONSULT ---
[facility] Psychiatric Consult - Data Date of interview: 08/29/19 Admission source: [facility] Identifying data: Mr Feliciano is a 69 years old single male, retired hotel worker receiving social security, living alone seeking detox treatment for alcohol and cocaine Substance Abuse History: Reports history of alcohol and cocaine use. Refer to addiction counselor's summary for further information Medical History: Significant for osteoarthritis of both knees, benign prostatic hyperplasia, PPD+, history of alcohol related seizure and tonsillectomy. Smokes 2 cigarettes daily Psychiatric History: Patient is very irritable and superficially cooperative in providing information. At first, he denies history of previous psychiatric treatment. However, when reminded about psychotropic medications including Zoloft 50 mg/day and Trazadone 100 mg/hs that he is on, he acknowledges taking them for about a month prescribed by a psychiatrist at [facility]. Denies previous psychiatric hospitalization or suicidal attempt. At present, reports feeling irritable and sleeping poorly Physical/Sexual Abuse/Trauma History: Denies history of abuse as a child or DV relationship as an adult Mental Status Exam - Mental Status Exam Alert and Oriented to: Time, Place, Person Cognitive Function: Fair Patient Appearance: Disheveled Mood: Irritable Affect: Appropriate Speech Pattern: Clear Voice Loudness: Normal Thought Process: Intact, Goal Oriented Hallucinations: Denies Suicidal Ideation: Denies Homicidal Ideation: Denies Insight/Judgement: Poor Sleep: Poorly Appetite: Good Muscle strength/Tone: Normal Gait/Station: Normal Psychiatric Findings - Problem List ([place] 1, 2,3) (1) Substance induced mood disorder Current Visit: Yes Status: Acute (2) MDD (major depressive disorder) Current Visit: Yes Status: Ruled-out (3) Substance-induced sleep disorder Current Visit: Yes Status: Acute (4) Alcohol dependence with uncomplicated withdrawal Current Visit: Yes Status: Chronic (5) Cocaine dependence Current Visit: Yes Status: Acute (6) Nicotine dependence Current Visit: Yes Status: Chronic Qualifiers: Nicotine product type: cigarettes Substance use status: uncomplicated Qualified Code(s): F17.210 - Nicotine dependence, cigarettes, uncomplicated (7) History of seizure Current Visit: No Status: Resolved Comment: r/t withdrawal (8) Osteoarthritis of knees, bilateral Current Visit: No Status: Chronic Qualifiers: Osteoarthritis type: primary Qualified Code(s): M17.0 - Bilateral primary osteoarthritis of knee (9) PPD positive Current Visit: Yes Status: Chronic - Initial Treatment Plan Initial Treatment Plan: 1) Continue Zoloft 50 mg po daily and Trazadone 100 mg po HS. 2) Continue inpatient detoxification
[2019-08-29] MEDS: SERTRALINE HCL 50 MG TABLET (FP) PO SCH (12:00)
[2019-08-29] MEDS: traZODone HCL 100 MG TABLET (FP) PO SCH (22:03)
[2019-08-29] MEDS: FINASTERIDE 5 MG TABLET (FP) PO SCH (22:04)
[2019-08-29] MEDS: THIAMINE HCL 100 MG TABLET (FP) PO SCH (22:07)
[2019-08-30] MEDS: chlordiazePOXIDE HCL 25 MG CAPSULE PO SCH ×4 (05:35→21:59)
--- NOTE | 2019-08-30 10:29 | PN ---
S CIWA - CIWA Score Nausea/Vomitin-Mild Nausea/No Vomiting Muscle Tremors: 2 Anxiety: 2 Agitation: 2 Paroxysmal Sweats: No Perspiration Orientation: 0-Oriented Tacttile Disturbances: 1-Very Mild Itch/Numbness Auditory Disturbances: 0-None Visual Disturbances: 0-None Headache: 2-Mild CIWA-Ar Total Score: 10 BHS Progress Note (SOAP) Subjective: alert,irritable,anxious,interrupted sleep,tremor Objective: 08/30/19 10:26 Vital Signs Temperature 97.8 F 08/30/19 09:12 Pulse Rate 73 08/30/19 09:12 Respiratory Rate 18 08/30/19 09:12 Blood Pressure 104/53 L 08/30/19 09:12 O2 Sat by Pulse Oximetry (%) Assessment: 08/30/19 10:28 withdrawal symptom Plan: continue detox librium regimen
[2019-08-30] MEDS: TAMSULOSIN HCL 0.4 MG CAP PO SCH (10:31)
[2019-08-30] MEDS: SERTRALINE HCL 50 MG TABLET (FP) PO SCH (10:31)
[2019-08-30] MEDS: PRENATAL VITAMINS W/ FOLIC ACID TABLET (FP) PO SCH (10:31)
[2019-08-30] MEDS: NICOTINE 7 MG/24 HOURS TOPICAL PATCH TD SCH (10:40)
[2019-08-30] MEDS: traZODone HCL 100 MG TABLET (FP) PO SCH (21:57)
[2019-08-30] MEDS: THIAMINE HCL 100 MG TABLET (FP) PO SCH (21:57)
[2019-08-30] MEDS: FINASTERIDE 5 MG TABLET (FP) PO SCH (21:57)
[2019-08-31] MEDS ORDERED: chlordiazePOXIDE HCL 10 MG CAPSULE PO PRN
[2019-08-31] MEDS: chlordiazePOXIDE HCL 10 MG CAPSULE PO SCH ×4 (05:57→21:59)
--- NOTE | 2019-08-31 09:16 | PN ---
S CIWA - CIWA Score Nausea/Vomitin-No Nausea/No Vomiting Muscle Tremors: 1-None Visible, but Hope Anxiety: 2 Agitation: 3 Paroxysmal Sweats: 1-Minimal Palms Moist Orientation: 0-Oriented Tacttile Disturbances: 1-Very Mild Itch/Numbness Auditory Disturbances: 0-None Visual Disturbances: 0-None Headache: 0-None Present CIWA-Ar Total Score: 8 BHS Progress Note (SOAP) Subjective: Patient is a 69 yo male with w/ hx of alcohol and cocaine dependence currently on librium detox protocol c/o of interrupted sleep, chills and irritability. Objective: 08/31/19 09:17 Vital Signs Temperature 97.2 F L 08/31/19 05:00 Pulse Rate 60 08/31/19 05:00 Respiratory Rate 20 08/31/19 05:00 Blood Pressure 102/60 08/31/19 05:00 O2 Sat by Pulse Oximetry (%) labs pending Assessment: 08/31/19 09:19 Patient Aox3 no acute distress full ROM ambulating in the unit withdrawal sx Plan: increase fluids continue detox continue to monitor
[2019-08-31] MEDS: SERTRALINE HCL 50 MG TABLET (FP) PO SCH (10:30)
[2019-08-31] MEDS: TAMSULOSIN HCL 0.4 MG CAP PO SCH (10:30)
[2019-08-31] MEDS: PRENATAL VITAMINS W/ FOLIC ACID TABLET (FP) PO SCH (10:30)
[2019-08-31 13:15] LABS: PH,URINE 5.5 (5.0-8.0); URINE APPEARANCE CLEAR; URINE BILIRUBIN NEGATIVE (NEGATIVE); URINE COLOR YELLOW; URINE GLUCOSE (UA) NEGATIVE (NEGATIVE); URINE KETONE NEGATIVE (NEGATIVE); URINE LEUK ESTERASE NEGATIVE (NEGATIVE); URINE NITRITE NEGATIVE (NEGATIVE); URINE PROTEIN NEGATIVE (NEGATIVE); URINE UROBILINOGEN 0.2 mg/dL (0.2-1.0)
[2019-08-31] MEDS: traZODone HCL 100 MG TABLET (FP) PO SCH (21:57)
[2019-08-31] MEDS: THIAMINE HCL 100 MG TABLET (FP) PO SCH (21:59)
[2019-08-31] MEDS: FINASTERIDE 5 MG TABLET (FP) PO SCH (21:59)
[2019-09-01] MEDS ORDERED: chlordiazePOXIDE HCL 10 MG CAPSULE PO SCH (05:00)
--- NOTE | 2019-09-01 09:30 | DS ---
[facility] Detox Discharge Summary Admission Date: 08/28/19 Discharge Date: 09/01/19 - History Present History: Alcohol Dependence, Cocaine Dependence - Physical Exam Results Vital Signs: Vital Signs Temperature 97.5 F L 09/01/19 07:15 Pulse Rate 51 L 09/01/19 07:15 Respiratory Rate 18 09/01/19 07:15 Blood Pressure 100/50 L 09/01/19 07:15 O2 Sat by Pulse Oximetry (%) Pertinent Admission Physical Exam Findings: Vital Signs Temperature 97.5 F L 09/01/19 07:15 Pulse Rate 51 L 09/01/19 07:15 Respiratory Rate 18 09/01/19 07:15 Blood Pressure 100/50 L 09/01/19 07:15 O2 Sat by Pulse Oximetry (%) Laboratory Tests 08/31/19 08:15 Urine Color Yellow Urine Appearance Clear Urine pH 5.5 Ur Specific [place] 1.026 Urine Protein Negative Urine Glucose (UA) Negative Urine Ketones Negative Urine Blood Negative Urine Nitrite Negative Urine Bilirubin Negative Urine Urobilinogen 0.2 Ur Leukocyte Esterase Negative - Treatment Hospital Course: Detox Protocol Followed, Detoxed Safely, Responded well, Discharged Condition Good, Rehab Referral Accepted Patient has Accepted a Rehab Referral to: pt referred to [facility] - Medication Discharge Medications: Ambulatory Orders Tamsulosin HCl [Flomax -] 0.4 mg PO DAILY #30 cap.[id number] 04/22/15 Finasteride [Proscar -] 5 mg PO DAILY 07/04/18 Sertraline HCl [Zoloft -] 50 mg PO DAILY 08/28/19 traZODone HCL [Desyrel -] 100 mg PO HS 08/28/19 - Diagnosis (1) Cocaine dependence Current Visit: Yes Status: Chronic Qualifiers: Substance use status: uncomplicated Qualified Code(s): F14.20 - Cocaine dependence, uncomplicated (2) Scleral icterus Current Visit: Yes Status: Acute (3) Substance induced mood disorder Current Visit: Yes Status: Acute (4) Substance-induced sleep disorder Current Visit: Yes Status: Acute (5) Alcohol dependence with uncomplicated withdrawal Current Visit: Yes Status: Chronic (6) BPH (benign prostatic hyperplasia) Current Visit: Yes Status: Chronic Qualifiers: Lower urinary tract symptom presence: symptoms present (7) Cocaine abuse Current Visit: Yes Status: Chronic (8) Nicotine dependence Current Visit: Yes Status: Chronic Qualifiers: Nicotine product type: cigarettes Substance use status: uncomplicated Qualified Code(s): F17.210 - Nicotine dependence, cigarettes, uncomplicated (9) PPD positive Current Visit: Yes Status: Chronic (10) MDD (major depressive disorder) Current Visit: Yes Status: Ruled-out (11) Osteoarthritis of knees, bilateral Current Visit: No Status: Chronic Qualifiers: Osteoarthritis type: primary Qualified Code(s): M17.0 - Bilateral primary osteoarthritis of knee (12) History of seizure Current Visit: No Status: Resolved - AMA Did Patient Leave Against Medical Advice: No
[2019-09-01 09:56] VITALS: BP 118/54; PULSE 66; TEMP 97.2
[2019-09-01] MEDS ORDERED: HYDROCORTISONE 1% TOPICAL CREAM 30 GM TUBE TP ONE (10:23)
[2019-09-01] MEDS: PRENATAL VITAMINS W/ FOLIC ACID TABLET (FP) PO SCH (10:31)
[2019-09-01] MEDS: TAMSULOSIN HCL 0.4 MG CAP PO SCH (10:31)
[2019-09-01] MEDS: SERTRALINE HCL 50 MG TABLET (FP) PO SCH (10:31)
[2019-09-01] MEDS: NICOTINE 7 MG/24 HOURS TOPICAL PATCH TD SCH (10:33)
[2019-09-02] MEDS ORDERED: chlordiazePOXIDE HCL 10 MG CAPSULE PO ONE (05:00)
== END 2019-09-01 11:13 | disposition home or self-care (01) | DRG 897 ==
LOC: YASAS 13:09 → Y6N 18:33
PROVIDERS: ADMIT Allergy & Immunology; ATTEND Allergy & Immunology
PROC: HZ2ZZZZ Detoxification Services for Substance Abuse Treatment (ICD-10-PCS; principal; 2019-08-28)
DX: F10.230 Alcohol dependence with withdrawal, uncomplicated (principal); F14.20 Cocaine dependence, uncomplicated; F19.282 Other psychoactive substance dependence with psychoactive substance-induced sleep disorder; F17.210 Nicotine dependence, cigarettes, uncomplicated; F19.24 Other psychoactive substance dependence with psychoactive substance-induced mood disorder; H15.89 Other disorders of sclera; N40.0 Benign prostatic hyperplasia without lower urinary tract symptoms; R76.11 Nonspecific reaction to tuberculin skin test without active tuberculosis; M17.0 Bilateral primary osteoarthritis of knee; G47.00 Insomnia, unspecified; K21.9 Gastro-esophageal reflux disease without esophagitis; E66.9 Obesity, unspecified; Z68.31 Body mass index [BMI] 31.0-31.9, adult; Z86.69 Personal history of other diseases of the nervous system and sense organs
CPT/HCPCS: 71046-TC-FY; 81003; 93005; 93010

== ENCOUNTER 2021-02-26 13:44 | Inpatient (IN) | payer OTHER ==
[2021-02-26 16:00] VITALS: BMI 28.8
[2021-02-26] MEDS ORDERED: METHOCARBAMOL 500 MG TABLET PO PRN (18:14)
[2021-02-26] MEDS ORDERED: MAGNESIUM CITRATE 300 ML BOTTLE PO PRN (18:14)
[2021-02-26] MEDS ORDERED: MAGNESIUM HYDROX 2400MG/30ML ORAL SUSPENSION 30 ML CUP PO PRN (18:14)
[2021-02-26] MEDS ORDERED: MAG HYDROX/AL HYDROX/SIMETH 30 ML UNIT-DOSE CUP PO PRN (18:14)
[2021-02-26] MEDS ORDERED: BISMUTH SUBSALICYLATE 524 MG/30 ML PO PRN (18:14)
[2021-02-26] MEDS ORDERED: ONDANSETRON *ODT* 4 MG TABLET SL PRN (18:14)
[2021-02-26] MEDS ORDERED: ACETAMINOPHEN 325 MG TABLET (FP) PO PRN ×2 (18:14)
[2021-02-26] MEDS ORDERED: MENTHOL/PHENOL 1 EACH UD MM PRN (18:14)
[2021-02-26] MEDS ORDERED: IBUPROFEN 400 MG TABLET (FP) PO PRN (18:14)
[2021-02-26] MEDS ORDERED: NICOTINE POLACRILEX 2 MG GUM BUC PRN (18:14)
[2021-02-26] MEDS ORDERED: LORazepam 1 MG TABLET PO PRN (18:14)
[2021-02-26] MEDS: PRENATAL VITAMINS W/ FOLIC ACID TABLET (FP) PO SCH (19:08)
[2021-02-26] MEDS: NICOTINE 14 MG/24 HOURS TOPICAL PATCH TD SCH (19:12)
[2021-02-26] MEDS: LORazepam 2 MG TABLET PO SCH (23:03)
[2021-02-26] MEDS: hydrOXYzine PAMOATE 25 MG CAPSULE (FP) PO SCH (23:03)
[2021-02-26] MEDS: MELATONIN 5 MG TABLETS PO SCH (23:03)
[2021-02-26] MEDS: THIAMINE HCL 100 MG TABLET (FP) PO SCH (23:03)
[2021-02-27] MEDS: LORazepam 2 MG TABLET PO SCH ×4 (06:34→22:53)
[2021-02-27] MEDS: hydrOXYzine PAMOATE 25 MG CAPSULE (FP) PO SCH ×2 (06:34→11:25)
[2021-02-27] MEDS: TAMSULOSIN HCL 0.4 MG CAP PO SCH (08:16)
[2021-02-27] MEDS: NICOTINE 14 MG/24 HOURS TOPICAL PATCH TD SCH (11:25)
[2021-02-27] MEDS: PRENATAL VITAMINS W/ FOLIC ACID TABLET (FP) PO SCH (11:25)
[2021-02-27] MEDS ORDERED: hydrOXYzine PAMOATE 25 MG CAPSULE (FP) PO PRN (12:13)
[2021-02-27] MEDS: THIAMINE HCL 100 MG TABLET (FP) PO SCH (22:53)
[2021-02-27] MEDS: MELATONIN 5 MG TABLETS PO SCH (22:53)
[2021-02-28] MEDS: LORazepam 1 MG TABLET PO SCH ×4 (06:39→22:30)
[2021-02-28] MEDS: PRENATAL VITAMINS W/ FOLIC ACID TABLET (FP) PO SCH (11:28)
[2021-02-28] MEDS: NICOTINE 14 MG/24 HOURS TOPICAL PATCH TD SCH (11:29)
[2021-02-28] MEDS: TAMSULOSIN HCL 0.4 MG CAP PO SCH (11:29)
[2021-02-28 13:11] LABS: HEMATOCRIT 33.9 % (35.4-49); HEMOGLOBIN 12.8 GM/dL (11.7-16.9); MCHC 37.6 g/dl (32.0-35.9); MEAN CELL VOLUME 95.8 fl (80-96); MEAN PLT VOLUME 9.3 fl (7.5-11.1); PLATELET COUNT 213 10^3/uL (134-434); RBC 3.54 M/mm3 (4.00-5.60); RDW 17.8 % (11.9-15.9); WHITE BLOOD COUNT 2.8 K/mm3 (4.0-10.0)
[2021-02-28 14:41] LABS: CALCIUM 8.4 mg/dL (8.5-10.1)
[2021-02-28 14:42] LABS: ALBUMIN 3.3 g/dl (3.4-5.0); BLOOD UREA NITROGEN 12.1 mg/dL (7-18)
[2021-02-28 14:45] LABS: CREATININE 0.7 mg/dL (0.55-1.3)
[2021-02-28 14:46] LABS: BILIRUBIN,TOTAL 2.6 mg/dL (0.2-1); TOT PROT 6.2 g/dl (6.4-8.2)
[2021-02-28] MEDS: THIAMINE HCL 100 MG TABLET (FP) PO SCH (22:30)
[2021-02-28] MEDS: MELATONIN 5 MG TABLETS PO SCH (22:30)
[2021-03-01] MEDS ORDERED: LORazepam 0.5 MG TABLET PO PRN
[2021-03-01] MEDS: LORazepam 0.5 MG TABLET PO SCH ×4 (06:27→22:47)
[2021-03-01] MEDS: TAMSULOSIN HCL 0.4 MG CAP PO SCH (08:18)
[2021-03-01] MEDS: NICOTINE 14 MG/24 HOURS TOPICAL PATCH TD SCH (12:05)
[2021-03-01] MEDS: PRENATAL VITAMINS W/ FOLIC ACID TABLET (FP) PO SCH (12:05)
[2021-03-01] MEDS: THIAMINE HCL 100 MG TABLET (FP) PO SCH (22:47)
[2021-03-01] MEDS: MELATONIN 5 MG TABLETS PO SCH (22:47)
[2021-03-02] MEDS ORDERED: LORazepam 0.5 MG TABLET PO ONE (05:00)
[2021-03-02] MEDS: NICOTINE 14 MG/24 HOURS TOPICAL PATCH TD SCH (11:21)
[2021-03-02] MEDS: PRENATAL VITAMINS W/ FOLIC ACID TABLET (FP) PO SCH (11:22)
[2021-03-02] MEDS: TAMSULOSIN HCL 0.4 MG CAP PO SCH (11:23)
[2021-03-02] MEDS: MELATONIN 5 MG TABLETS PO SCH (22:27)
[2021-03-02] MEDS: THIAMINE HCL 100 MG TABLET (FP) PO SCH (22:27)
[2021-03-03 09:45] VITALS: TEMP 97.3
[2021-03-03] MEDS: NICOTINE 14 MG/24 HOURS TOPICAL PATCH TD SCH (10:38)
[2021-03-03] MEDS: PRENATAL VITAMINS W/ FOLIC ACID TABLET (FP) PO SCH (10:39)
[2021-03-03] MEDS: TAMSULOSIN HCL 0.4 MG CAP PO SCH (10:40)
[2021-03-03 13:21] VITALS: BP 153/87; PULSE 72
== END 2021-03-03 13:01 | disposition home or self-care (01) | DRG 897 ==
LOC: YASAS 13:44 → Y3N 18:34
PROVIDERS: ADMIT Allergy & Immunology; ATTEND Allergy & Immunology
PROC: HZ2ZZZZ Detoxification Services for Substance Abuse Treatment (ICD-10-PCS; principal; 2021-02-26)
DX: F10.230 Alcohol dependence with withdrawal, uncomplicated (principal); F14.20 Cocaine dependence, uncomplicated; F19.282 Other psychoactive substance dependence with psychoactive substance-induced sleep disorder; R17 Unspecified jaundice; F17.210 Nicotine dependence, cigarettes, uncomplicated; F19.24 Other psychoactive substance dependence with psychoactive substance-induced mood disorder; E78.00 Pure hypercholesterolemia, unspecified; E78.5 Hyperlipidemia, unspecified; E78.1 Pure hyperglyceridemia; M17.0 Bilateral primary osteoarthritis of knee; N40.0 Benign prostatic hyperplasia without lower urinary tract symptoms; R76.11 Nonspecific reaction to tuberculin skin test without active tuberculosis; Z86.69 Personal history of other diseases of the nervous system and sense organs; Z86.79 Personal history of other diseases of the circulatory system; Z96.89 Presence of other specified functional implants
CPT/HCPCS: 36415; 71046-TC-FY; 80053; 85027; 86780; C9803; U0003; U0005

== ENCOUNTER 2022-08-27 15:00 | Inpatient (IN) | payer OTHER ==
[2022-08-27 16:22] VITALS: BMI 30.3
[2022-08-27] MEDS ORDERED: hydrOXYzine PAMOATE 25 MG CAPSULE (FP) PO PRN (17:14)
[2022-08-27] MEDS ORDERED: NICOTINE 10 MG CARTRIDGE (INHALER) IH PRN (17:14)
[2022-08-27] MEDS ORDERED: MAG HYDROX/AL HYDROX/SIMETH 30 ML UNIT-DOSE CUP PO PRN (17:14)
[2022-08-27] MEDS ORDERED: LORazepam 1 MG TABLET PO PRN (17:14)
[2022-08-27] MEDS ORDERED: ACETAMINOPHEN 325 MG TABLET (FP) PO PRN ×2 (17:14)
[2022-08-27] MEDS ORDERED: BISMUTH SUBSALICYLATE 524 MG/30 ML PO PRN (17:14)
[2022-08-27] MEDS ORDERED: MAGNESIUM HYDROX 2400MG/30ML ORAL SUSPENSION 30 ML CUP PO PRN (17:14)
[2022-08-27] MEDS ORDERED: IBUPROFEN 400 MG TABLET (FP) PO PRN (17:14)
[2022-08-27] MEDS ORDERED: METHOCARBAMOL 500 MG TABLET PO PRN (17:14)
[2022-08-27] MEDS ORDERED: LOPERAMIDE HCL 2 MG CAPSULE PO PRN (17:14)
[2022-08-27] MEDS ORDERED: ONDANSETRON *ODT* 4 MG TABLET SL PRN (17:14)
[2022-08-27] MEDS ORDERED: DICYCLOMINE HCL 10 MG CAPSULE PO PRN (17:14)
[2022-08-27] MEDS ORDERED: NALOXONE HCL (KLOXXADO) 8 MG SPRAY NS PRN (17:14)
[2022-08-27] MEDS ORDERED: POLYETHYLENE GLYCOL (HEALTHYLAX) 3350 17 GM PACKET PO PRN (17:14)
[2022-08-27] MEDS ORDERED: BENZOCAINE/MENTHOL (CHLORASEPTIC ) LOZENGE MM PRN (17:14)
[2022-08-27] MEDS ORDERED: IBUPROFEN 600 MG TABLET (FP) PO PRN (17:14)
[2022-08-27] MEDS ORDERED: LORazepam 2 MG TABLET PO ONE (17:45)
[2022-08-27] MEDS: PRENATAL VITAMINS W/ FOLIC ACID TABLET (FP) PO SCH (19:29)
[2022-08-27] MEDS: NICOTINE 7 MG/24 HOURS TOPICAL PATCH TD SCH (19:30)
[2022-08-27] MEDS ORDERED: MELATONIN 5 MG TABLETS PO SCH (22:00)
[2022-08-27] MEDS: THIAMINE HCL 100 MG TABLET (FP) PO SCH (22:28)
[2022-08-27] MEDS: LORazepam 2 MG TABLET PO SCH (22:29)
[2022-08-28] MEDS: LORazepam 2 MG TABLET PO SCH ×4 (06:24→22:22)
[2022-08-28] MEDS: PRENATAL VITAMINS W/ FOLIC ACID TABLET (FP) PO SCH (10:55)
[2022-08-28] MEDS: NICOTINE 7 MG/24 HOURS TOPICAL PATCH TD SCH (10:56)
[2022-08-28] MEDS: THIAMINE HCL 100 MG TABLET (FP) PO SCH (22:21)
[2022-08-28] MEDS: traZODone HCL 50 MG TABLET (FP) PO SCH (22:21)
[2022-08-29] MEDS: LORazepam 1 MG TABLET PO SCH ×4 (07:35→22:57)
[2022-08-29] MEDS: NICOTINE 7 MG/24 HOURS TOPICAL PATCH TD SCH (10:14)
[2022-08-29] MEDS: PRENATAL VITAMINS W/ FOLIC ACID TABLET (FP) PO SCH (10:14)
[2022-08-29] MEDS: THIAMINE HCL 100 MG TABLET (FP) PO SCH (22:57)
[2022-08-29] MEDS: traZODone HCL 50 MG TABLET (FP) PO SCH (22:57)
[2022-08-30] MEDS ORDERED: LORazepam 0.5 MG TABLET PO PRN
[2022-08-30] MEDS: LORazepam 0.5 MG TABLET PO SCH ×7 (06:48→23:42)
[2022-08-30] MEDS: NICOTINE 7 MG/24 HOURS TOPICAL PATCH TD SCH (11:03)
[2022-08-30] MEDS: PRENATAL VITAMINS W/ FOLIC ACID TABLET (FP) PO SCH (11:03)
[2022-08-30] MEDS: traZODone HCL 50 MG TABLET (FP) PO SCH ×2 (22:15→23:41)
[2022-08-30] MEDS: THIAMINE HCL 100 MG TABLET (FP) PO SCH (22:15)
[2022-08-31] MEDS ORDERED: LORazepam 0.5 MG TABLET PO ONE (05:00)
[2022-08-31 09:20] VITALS: BP 112/50; PULSE 59; RESP 16; TEMP 97.1
[2022-08-31] MEDS: PRENATAL VITAMINS W/ FOLIC ACID TABLET (FP) PO SCH (10:53)
[2022-08-31] MEDS: NICOTINE 7 MG/24 HOURS TOPICAL PATCH TD SCH (11:00)
== END 2022-08-31 11:51 | disposition home or self-care (01) | DRG 897 ==
LOC: YASAS 15:00 → UNDOADMIN 17:58 → Y6N 17:58 → Y3N 18:11
PROVIDERS: ADMIT Allergy & Immunology; ATTEND Surgery
PROC: HZ2ZZZZ Detoxification Services for Substance Abuse Treatment (ICD-10-PCS; principal; 2022-08-27)
DX: F10.230 Alcohol dependence with withdrawal, uncomplicated (principal); R17 Unspecified jaundice; F14.10 Cocaine abuse, uncomplicated; F17.210 Nicotine dependence, cigarettes, uncomplicated; E78.5 Hyperlipidemia, unspecified; M17.0 Bilateral primary osteoarthritis of knee; N40.0 Benign prostatic hyperplasia without lower urinary tract symptoms; R76.11 Nonspecific reaction to tuberculin skin test without active tuberculosis; Z20.822 Contact with and (suspected) exposure to COVID-19; Z87.19 Personal history of other diseases of the digestive system; Z86.69 Personal history of other diseases of the nervous system and sense organs
CPT/HCPCS: 71046-TC-FY; 87811; 93005; 93010; C9803-CS; U0003; U0005

== ENCOUNTER 2023-12-09 11:14 | Inpatient (IN) | payer OTHER ==
[2023-12-09 12:27] VITALS: BMI 27.6
[2023-12-09] MEDS ORDERED: ONDANSETRON *ODT* 4 MG TABLET ONE (12:36)
[2023-12-09] MEDS ORDERED: BENZONATATE 200 MG CAPSULE PO PRN (12:43)
[2023-12-09] MEDS ORDERED: BISMUTH SUBSALICYLATE 262 MG/15 ML BTL PO PRN (12:43)
[2023-12-09] MEDS ORDERED: NALOXONE HCL 0.4 MG/ML VIAL IM PRN (12:43)
[2023-12-09] MEDS ORDERED: NALOXONE HCL (KLOXXADO) 8 MG SPRAY NS PRN (12:43)
[2023-12-09] MEDS ORDERED: POLYETHYLENE GLYCOL (HEALTHYLAX) 3350 17 GM PACKET PO PRN (12:43)
[2023-12-09] MEDS ORDERED: BENZOCAINE/MENTHOL (CHLORASEPTIC ) LOZENGE MM PRN (12:43)
[2023-12-09] MEDS ORDERED: MAGNESIUM HYDROX 2400MG/30ML ORAL SUSPENSION 30 ML CUP PO PRN (12:43)
[2023-12-09] MEDS ORDERED: hydrOXYzine PAMOATE 25 MG CAPSULE (FP) PO PRN (12:43)
[2023-12-09] MEDS ORDERED: DICYCLOMINE HCL 10 MG CAPSULE PO PRN (12:43)
[2023-12-09] MEDS ORDERED: METHOCARBAMOL 500 MG TABLET PO PRN (12:43)
[2023-12-09] MEDS ORDERED: IBUPROFEN 400 MG TABLET (FP) PO PRN (12:43)
[2023-12-09] MEDS ORDERED: LOPERAMIDE HCL 2 MG CAPSULE PO PRN (12:43)
[2023-12-09] MEDS ORDERED: guaiFENesin 600 MG TABLET.ER (FP) PO PRN (12:43)
[2023-12-09] MEDS ORDERED: ACETAMINOPHEN 325 MG TABLET (FP) PO PRN (12:43)
[2023-12-09] MEDS ORDERED: MAG HYDROX/AL HYDROX/SIMETH 30 ML UNIT-DOSE CUP PO PRN (12:43)
[2023-12-09] MEDS ORDERED: ONDANSETRON *ODT* 4 MG TABLET SL PRN (12:43)
[2023-12-09] MEDS ORDERED: IBUPROFEN 600 MG TABLET (FP) PO PRN (12:43)
[2023-12-09] MEDS: LORazepam 1 MG TABLET PO PRN (13:01)
[2023-12-09] MEDS ORDERED: PRENATAL VITAMINS W/ FOLIC ACID TABLET (FP) PO ONE (13:09)
[2023-12-09] MEDS ORDERED: LORazepam 1 MG TABLET ONE (13:09)
[2023-12-09] MEDS: PRENATAL VITAMINS W/ FOLIC ACID TABLET (FP) PO SCH (13:46)
[2023-12-09] MEDS: LORazepam 1 MG TABLET PO SCH (19:39)
[2023-12-09] MEDS: MELATONIN 5 MG TABLETS PO SCH (22:56)
[2023-12-09] MEDS: THIAMINE HCL 100 MG TABLET (FP) PO SCH (22:56)
[2023-12-10 07:09] VITALS: BP 105/60; PULSE 46; RESP 17; TEMP 97.8
[2023-12-10] MEDS: NICOTINE 7 MG/24 HOURS TOPICAL PATCH TD SCH (10:04)
[2023-12-10] MEDS: TAMSULOSIN HCL 0.4 MG CAP PO SCH (12:53)
[2023-12-10] MEDS: FINASTERIDE 5 MG TABLET (FP) PO SCH (14:27)
[2023-12-11] MEDS ORDERED: LORazepam 1 MG TABLET PO SCH (05:00)
[2023-12-12] MEDS ORDERED: LORazepam 0.5 MG TABLET PO PRN
[2023-12-12] MEDS ORDERED: LORazepam 0.5 MG TABLET PO SCH (05:00)
[2023-12-13] MEDS ORDERED: LORazepam 0.5 MG TABLET PO ONE (05:00)
== END 2023-12-10 16:34 | disposition left against medical advice (07) | DRG 894 ==
LOC: YASAS 11:14 → Y6N 12:42
PROVIDERS: ADMIT Allergy & Immunology; ATTEND Surgery
PROC: HZ2ZZZZ Detoxification Services for Substance Abuse Treatment (ICD-10-PCS; principal; 2023-12-09)
DX: F10.230 Alcohol dependence with withdrawal, uncomplicated (principal); F14.20 Cocaine dependence, uncomplicated; F12.20 Cannabis dependence, uncomplicated; F17.210 Nicotine dependence, cigarettes, uncomplicated; F32.9 Major depressive disorder, single episode, unspecified; E78.00 Pure hypercholesterolemia, unspecified; E78.5 Hyperlipidemia, unspecified; K74.60 Unspecified cirrhosis of liver; M17.0 Bilateral primary osteoarthritis of knee; N40.0 Benign prostatic hyperplasia without lower urinary tract symptoms; R76.11 Nonspecific reaction to tuberculin skin test without active tuberculosis; Z86.69 Personal history of other diseases of the nervous system and sense organs
CPT/HCPCS: 71046-TC-FY; 93005; 93010

== ENCOUNTER 2024-05-31 22:56 | Inpatient (IN) | payer OTHER ==
[2024-06-01 00:55] VITALS: BMI 29.7
[2024-06-01] MEDS ORDERED: IBUPROFEN 600 MG TABLET (FP) PO PRN (03:10)
[2024-06-01] MEDS ORDERED: ONDANSETRON *ODT* 4 MG TABLET SL PRN (03:10)
[2024-06-01] MEDS ORDERED: LOPERAMIDE HCL 2 MG CAPSULE PO PRN (03:10)
[2024-06-01] MEDS ORDERED: ACETAMINOPHEN 325 MG TABLET (FP) PO PRN (03:10)
[2024-06-01] MEDS ORDERED: NICOTINE POLACRILEX 2 MG GUM BUC PRN (03:10)
[2024-06-01] MEDS ORDERED: NALOXONE (NARCAN) HCL 4 MG/0.1 ML SPRAY NS PRN (03:10)
[2024-06-01] MEDS ORDERED: MAG HYDROX/AL HYDROX/SIMETH 30 ML UNIT-DOSE CUP PO PRN (03:10)
[2024-06-01] MEDS ORDERED: NALOXONE (NYS OPIOID OVERDOSE PROGRAM) 4 MG/0.1 ML SPRAY NS PRN (03:10)
[2024-06-01] MEDS ORDERED: BENZOCAINE/MENTHOL (CHLORASEPTIC ) LOZENGE MM PRN (03:10)
[2024-06-01] MEDS ORDERED: IBUPROFEN 400 MG TABLET (FP) PO PRN (03:10)
[2024-06-01] MEDS ORDERED: BISMUTH SUBSALICYLATE 524 MG/30 ML PO PRN (03:10)
[2024-06-01] MEDS ORDERED: BENZONATATE 200 MG CAPSULE PO PRN (03:10)
[2024-06-01] MEDS ORDERED: MAGNESIUM HYDROX 2400MG/30ML ORAL SUSPENSION 30 ML CUP PO PRN (03:10)
[2024-06-01] MEDS ORDERED: guaiFENesin 600 MG TABLET.ER (FP) PO PRN (03:10)
[2024-06-01] MEDS: FINASTERIDE 5 MG TABLET (FP) PO SCH (09:57)
[2024-06-01] MEDS: TAMSULOSIN HCL 0.4 MG CAP PO SCH (09:57)
[2024-06-01] MEDS: levETIRAcetam XR 750 MG TAB PO SCH (09:58)
[2024-06-01] MEDS: PRENATAL VITAMINS W/ FOLIC ACID TABLET (FP) PO SCH (09:59)
[2024-06-01] MEDS: NICOTINE 14 MG/24 HOURS TOPICAL PATCH TD SCH (09:59)
[2024-06-01] MEDS: THIAMINE 100 MG TABLET PO SCH (21:48)
[2024-06-01] MEDS: ATORVASTATIN CA 40 MG TABLET (FP) PO SCH (21:48)
[2024-06-01] MEDS: MELATONIN 5 MG TABLETS PO SCH (21:48)
[2024-06-02] MEDS: POLYETHYLENE GLYCOL (HEALTHYLAX) 3350 17 GM PACKET PO PRN (06:04)
[2024-06-02 09:54] VITALS: BP 96/40; TEMP 97.5
[2024-06-02 13:11] VITALS: PULSE 52; RESP 18
== END 2024-06-02 11:29 | disposition other institution (70) | DRG 897 ==
LOC: YASAS 22:56 → Y3N 06-01 02:48
PROVIDERS: ADMIT Allergy & Immunology; ATTEND Allergy & Immunology
PROC: HZ2ZZZZ Detoxification Services for Substance Abuse Treatment (ICD-10-PCS; principal; 2024-06-01)
DX: F10.20 Alcohol dependence, uncomplicated (principal); F14.20 Cocaine dependence, uncomplicated; F17.210 Nicotine dependence, cigarettes, uncomplicated; F41.8 Other specified anxiety disorders; E78.5 Hyperlipidemia, unspecified; M17.0 Bilateral primary osteoarthritis of knee; N40.0 Benign prostatic hyperplasia without lower urinary tract symptoms; Z86.11 Personal history of tuberculosis; Z86.19 Personal history of other infectious and parasitic diseases
CPT/HCPCS: 36415; 80305; 80307; 93005; 93010